=== PATIENT | male | born 1975 | race Caucasian/White ===

== ENCOUNTER 2018-05-20 11:21 | Emergency (ER) | payer OTHER ==
--- NOTE | 2018-05-20 11:55 | EDM.PDOC ---
ED HPI GENERAL MEDICAL PROBLEM - General Chief Complaint: Head Injury Stated Complaint: HEAD INJURY - 05/15/18 Time Seen by Provider: 05/20/18 11:34 Source of Information: Reports: Patient History Limitations: Reports: No Limitations - History of Present Illness INITIAL COMMENTS - FREE TEXT/NARRATIVE: 43-year-old male presents to the ED after slipping and falling on the ice on May 15. He states his feet went out from underneath him and his head hit the running board of his truck causing to be very dazed lightheaded for a period of time. He states the rest the day seem to be dazed and difficult to focus. He never did vomit. He did develop a diffuse headache which he still has. Has developed increased headache pain and pressure in the back of his head and cervical spine over the last 5 days. Found it quite difficult to sleep last night due to neck and back of head pain. No visual acuity changes no nausea vomiting. No changes in his balance. Onset: Sudden Onset Date: 05/15/18 Duration: Day(s):, Getting Worse Location: Reports: Head (Entire cervical spine particular the base of his neck subpleural scalp and head.), Neck Quality: Reports: Ache, Pressure (Headache), Throbbing, Other Severity: Moderate Improves with: Reports: Rest (Tylenol helped a bit last night.) Worsens with: Reports: Movement Context: Reports: Trauma (Slipped and fell on the ice banging the back of his head on the running board of his truck 5 days ago. Dazed but no loss of consciousness. She said the rest of that day was quite hard to focus and he felt dazed and confused at times. Since then he has developed a gradually worsening headache occipital skull and throughout his cervical spine.). Denies : Activity, Exercise, Lifting, Sick Contact Associated Symptoms: Reports: Confusion (More difficult to focus the first day of injury.). Denies: Chest Pain, Cough, cough w sputum, Diaphoresis, Headaches , Loss of Appetite, Malaise, Nausea/Vomiting, Seizure, Shortness of Breath Treatments SUBJECT SCIENTIFIC RESEARCH: Reports: Acetaminophen Headache Pain Score (Numeric/FACES): 6 - Related Data Allergies Allergy/AdvReac Type Severity Reaction Status Date / Time No Known Allergies Allergy Verified 05/20/18 11:31 Home Meds: Home Meds Diclofenac Sodium [Voltaren] 50 mg PO TID #24 tab.ec 05/20/18 [Rx] oxyCODONE HCl/Acetaminophen [Percocet 5-325 mg Tablet] 1 - 2 each PO Q4H PRN # 15 tablet 05/20/18 [Rx] predniSONE [Deltasone] 20 mg PO BID #12 tablet 05/20/18 [Rx] Past Medical History - Past Surgical History HEENT Surgical History: Reports: Tonsillectomy Musculoskeletal Surgical History: Reports: Arthroscopic Knee, Carpal Tunnel Social & Family History - Tobacco Use Smoking Status *Q: Current Every Day Smoker Years of Tobacco use: 23 Packs/Tins Daily: 1 - Caffeine Use Caffeine Use: Reports: Coffee - Recreational Drug Use Recreational Drug Use: No - Living Situation & Occupation Living situation: Reports: Occupation: Employed ED [employer] GENER[employer] - Review of Systems Review Of Systems: See Below Constitutional: Reports: Malaise. Denies: Fever, Chills, Weakness, Fatigue, Decreased Appetite, Weight Loss HEENT: Reports: No Symptoms Respiratory: Reports: No Symptoms Cardiovascular: Reports: No Symptoms Endocrine: Reports: No Symptoms GI/Abdominal: Reports: No Symptoms : Reports: No Symptoms Musculoskeletal: Reports: Neck Pain, Shoulder Pain. Denies: Arm Pain, Back Pain , Hand Pain, Leg Pain, Joint Pain Skin: Reports: No Symptoms Neurological: Reports: Dizziness, Headache. Denies: Numbness, Paresthesia, Pre- Existing Deficit, Seizure, Syncope, Tingling, Tremors, Trouble Speaking, Difficulty Walking, Weakness, Change in Speech, Gait Disturbance Psychiatric: Reports: No Symptoms Hematologic/Lymphatic: Reports: No Symptoms Immunologic: Reports: No Symptoms ED EXAM, HEAD INJURY - Physical Exam Exam: See Below Exam Limited By: No Limitations General Appearance: Alert, WD/WN, No Apparent Distress Head: Atraumatic, Normocephalic, Scalp Tenderness. No: Scalp Lacerations, Scalp Swelling, Active Bleeding, Zuniga's Sign, Flap, Facial Abrasions, Facial Ecchymosis, Facial Lacerations, Facial Swelling, Sinus Tenderness Nexus Criteria: Posterior, Midline Cervical Tenderness. No: Evidence of Intoxication (2. Cervical 2 and 3), Altered Level of Consciousness, Focal Neurological Deficit, Painful Distraction Injuries Eyes: Bilateral Eye: Normal Inspection, PERRL Ears: Normal TMs, Other (Some pain over the left temporomandibular joint.) Throat/Mouth: Normal Inspection, Normal Lips, Normal Teeth, Normal Gums, Normal Oropharynx, Other (No malocclusion no dental injury no injury to the tongue.) Neck: Full Range of Motion, Normal Inspection, Stiff Neck, Tenderness, Tender Lateral (Morning the midline C2-C3 all way down to C7. Mild bilaterally.). No: Painful Range of Motion, Paraspinous Muscle Tender Respiratory: No Respiratory Distress, Lungs Clear, Normal Breath Sounds, No Accessory Muscle Use, Chest Non-Tender Cardiovascular: Normal Peripheral Pulses, Regular Rate, Rhythm, No Edema, No Gallop, No Murmur, No Rub Extremities: Normal Inspection, Normal Range of Motion, Non-Tender, No Pedal Edema Neurologic: civil rights attorney II-XII nml As Tested, No Motor/Sensory Deficits, Alert, Normal Mood/Affect, Oriented x 3 - [place] Coma Score Best Eye Response (Saeid): (4) Open Spontaneously Best Verbal Response ([place]): (5) Oriented Best Motor Response (Saeid): (6) Obeys Commands [place] Total: 15 Course - Vital Signs Last Recorded V/S: Last Vital Signs Temp 36.4 C 05/20/18 13:00 Pulse 88 05/20/18 13:00 Resp 18 05/20/18 13:00 BP 117/85 05/20/18 13:00 Pulse Ox 96 05/20/18 13:00 - Radiology Interpretation Free Text/Narrative:: 43-year-old male presents to the ED for assessment of increasing headache and cervical neck pain 5 days after falling. Patient states he slipped on the ice and fell backwards striking the occipital aspect of his skull on the running board of his truck. He was dazed but did not lose consciousness. He states the rest the day was kind of a days and confusion and difficult to focus suggesting mild concussion. Since that time however he is gradually developed increasing headache occipital skull with no associated nausea vomiting. Diffuse cervical neck pain down to thoracic to vertebra. Range of motion of his neck is good with axial compression not causing any radicular pain. Mild contusion to his Rt hand . Wrist is OK. wrists elbows or shoulders. No pain and lumbar spine. Plan CT head CT cervical spine to be done. - Re-Assessments/Exams Free Text/Narrative Re-Assessment/Exam: 05/20/18 12:15: CT cervical spine reveals disc space narrowing at C5-C6 level with posterior spurring. This posterior spurring is worse to the right of the midline which deforms the anterior thecal sac. Minimal anterior spurring also seen at this level degenerative spurring is noted within the uncovertebral joints at this level as well this suggest previous trauma at this level. Vertebral bodies and posterior arteries are intact no fractures seen no abnormal subdural subluxation identified. CT of the head shows nothing acute on noncontrast contrast CT head. Patient will be discharged to home. Prescription written for Voltaren 50 mg by mouth times daily for the next 8 days. Deltasone 20 mg twice a day with breakfast and supper for the next 6 days. Percocet tabs one or 2 every 4-6 hours for pain relief while not at work. 12 tablets provided. Follow-up with personal care physician if not completely back to normal in 10 days' time Departure - Departure Time of Disposition: 12:28 Disposition: Home, Self-Care 01 Condition: Fair Clinical Impression: Concussion injury of brain, Strain of neck muscle Closed head injury with concussion Qualifiers: Encounter type: initial encounter Loss of consciousness presence/duration: without LOC Qualified Code(s): S06.0X0A - Concussion without loss of consciousness, initial encounter Sprain of cervical neck Qualifiers: Encounter type: initial encounter Qualified Code(s): S13.9XXA - Sprain of joints and ligaments of unspecified parts of neck, initial encounter - Discharge Information *PRESCRIPTION DRUG MONITORING PROGRAM REVIEWED*: Not Applicable *COPY OF PRESCRIPTION DRUG MONITORING REPORT IN PATIENT AKI: Not Applicable Prescriptions: Diclofenac Sodium [Voltaren] 50 mg PO TID #24 tab.ec oxyCODONE HCl/Acetaminophen [Percocet 5-325 mg Tablet] 1 - 2 each PO Q4H PRN # 15 tablet PRN Reason: pain relief. predniSONE [Deltasone] 20 mg PO BID #12 tablet Instructions: Concussion, Adult, [id number], Cervical Sprain, [id number] Referrals: Solo Cruz MD [Primary Care Provider] - Forms: ED Department Discharge Additional Instructions: Evaluation the emergent today in regards to injuries to the back. Head and cervical spine that occurred from a slip and fall on the ice 5 days ago. Her feet went out from underneath you and you hit the back of her head hard on the running board of your truck. As you to be dazed and somewhat confused for the remainder the day but you did not lose consciousness. Subsequently you have developed increased pain throughout the cervical spine and headache or pressure discomfort in the back of your head. Therefore CT scan of the head and neck was carried out. CT scan of the head does not reveal any fractures of the skull and no intracranial bleeding or mass effect that would occur with significant swelling. It appears you have suffered a mild concussion. Similarly CT of the cervical spine reveals no broken bones. Injuries appear to be to the the surrounding ligaments and muscles surrounding the neck bones. Treatment is time to heal. Suggest use of anti-inflammatory Voltaren 50 mg 3 times daily for 8 days to take away pain and inflammation. Also Deltasone 20 mg twice daily for 6 days with breakfast and supper to relieve inflammation and thus pain. Stronger pain pill Percocet 5/325 mg tablets provided one or 2 every 4-6 hours when not at work or operating a motor vehicle to relieve headache pain for the next few days. Anti-inflammatories will take about a day and a half to 2 days to start to work well. Probably back to normal in 10 days' time you should follow-up with your personal care physician
--- NOTE | 2018-05-20 12:32 | CT ---
Head CT Technique: Multiple axial sections were obtained to the brain. Intravenous contrast was not utilized. Comparison: No prior intracranial imaging. Findings: Ventricles along with basal cisterns and sulci over the convexities are within normal limits for the patient's age. No abnormal parenchymal densities are seen. No evidence of intracranial hemorrhage. No midline shift or mass effect is seen. Bone window settings were reviewed which show no acute calvarial abnormality. Visualized sinuses are clear. Impression: 1. Nothing acute is seen on noncontrast head CT study. No skull fracture is identified. Diagnostic code #1
--- NOTE | 2018-05-20 12:32 | CT ---
CT cervical spine Technique: Multiple axial sections were obtained from above C1 inferiorly to the top of T2. Reconstructed sagittal and coronal images were reviewed. Comparison: No prior cervical spine imaging. Findings: Disc space narrowing is noted at C5-C6 with posterior spurring, this posterior spurring is worse to the right of midline which deforms the right anterior thecal sac. Minimal anterior spurring also seen at this level. Degenerative spurring is noted within the uncovertebral joints at this level. Vertebral bodies and posterior arches are intact. No fracture is seen. No abnormal subluxation is seen. Impression: 1. Degenerative change at C5-C6 as noted above. 2. No acute fracture or abnormal subluxation is seen on CT study of the cervical spine. Diagnostic code #2
== END 2018-05-20 13:00 | disposition home or self-care (01) ==
LOC: JD.ED 11:21
DX: S06.0X0A Concussion without loss of consciousness, initial encounter (principal); S13.9XXA Sprain of joints and ligaments of unspecified parts of neck, initial encounter; R40.2410 Glasgow coma scale score 13-15, unspecified time; F17.210 Nicotine dependence, cigarettes, uncomplicated; W00.0XXA Fall on same level due to ice and snow, initial encounter
CPT/HCPCS: 70450; 70450-26; 72125; 72125-26; 99284; 99284-25

== ENCOUNTER 2024-02-20 06:05 | Emergency (ER) | payer BC, OTHER ==
[2024-02-20 06:59] LABS: BASOPHILS PERCENT AUTO 0.6 % (0.0-1.0); EOSINOPHILS ABSOLUTE AUTO 0.2 K/mm3 (0.0-0.4); EOSINOPHILS PERCENT AUTO 3.2 % (0.0-6.0); HEMATOCRIT 50.3 % (42.0-52.0); HEMOGLOBIN 17.3 gm/dl (14.0-18.0); IMMATURE GRAN ABSOLUTE AUTO 0.01 K/mm3 (0.00-0.05); IMMATURE GRAN PERCENT AUTO 0.2 % (0.0-0.4); LYMPHOCYTES ABSOLUTE AUTO 1.5 K/mm3 (1.0-4.8); LYMPHOCYTES PERCENT AUTO 22.3 % (24.0-44.0); MEAN CORPUSCULAR HEMOGLOBIN 30.2 pg (28.0-32.0); MEAN CORPUSCULAR HGB CONC 34.4 g/dl (32.0-36.0); MEAN CORPUSCULAR VOLUME 87.8 fl (83.0-99.0); MONOCYTES ABSOLUTE AUTO 0.4 K/mm3 (0.0-0.8); MONOCYTES PERCENT AUTO 5.9 % (0.0-8.0); NEUTROPHILS ABSOLUTE AUTO 4.5 K/mm3 (1.8-7.7); NEUTROPHILS PERCENT AUTO 67.8 % (41.0-71.0); PLATELET COUNT,PLT 252 K/mm3 (150-400); RED BLOOD CELL COUNT 5.73 M/mm3 (4.52-5.90); WHITE BLOOD CELL COUNT,WBC 6.59 K/mm3 (3.9-11.3)
[2024-02-20 07:32] LABS: A/G RATIO 1.1 (1-2); ALBUMIN 3.9 g/dl (3.4-5.0); ANION GAP 9.3 (5-15); BILIRUBIN TOTAL 0.7 mg/dL (0.2-1.0); BUN/CREATININE RATIO 14.3 (14-18); CALCIUM 9.4 mg/dL (8.5-10.1); CREATININE 1.4 mg/dL (0.7-1.3); EST CRCL DRUG DOSING (CG) 74.21 mL/min; MAGNESIUM 2.3 mg/dL (1.8-2.4); POTASSIUM,K 5.3 mEq/L (3.5-5.1); PROTEIN TOTAL,TP 7.6 g/dl (6.4-8.2); TSH 1.323 uIU/mL (0.358-3.74)
== END 2024-02-20 09:02 | disposition home or self-care (01) ==
LOC: JD.ED 06:05
DX: R55 Syncope and collapse (principal); S09.90XA Unspecified injury of head, initial encounter; Z90.89 Acquired absence of other organs; Z79.52 Long term (current) use of systemic steroids; Z79.899 Other long term (current) drug therapy; W01.198A Fall on same level from slipping, tripping and stumbling with subsequent striking against other object, initial encounter
CPT/HCPCS: 36415; 70450; 70450-26; 80053; 83735; 84443; 84484; 85025; 93005; 99284